=== PATIENT | female | born 1935 | race Caucasian/White ===

== ENCOUNTER 2019-02-25 09:30 | Day surgery (SDC) | payer MEDICARE, OTHER ==
--- NOTE | 2019-02-25 07:19 | History and Physical - [place] ---
CHIEF COMPLAINT/HISTORY OF CHIEF COMPLAINT: This patient presents with a history of an intractable post lumbar laminectomy radiculopathy currently with a spinal infusion system in place infusing Hydromorphone. Over the last number of refills and reprogramming's it was noted she had battery depletion. She is here for a pump battery change without parameter changes. The pump sits in the left posterior gluteal margin. Along with this she has a nonfunctional spinal cord stimulator and internal generator with the generator at the left posterior gluteal margin. She is requesting because of lack of use that the generator and leads be removed. This will all be performed on an outpatient basis. PAST MEDICAL HISTORY: Hypertension. PAST SURGICAL HISTORY: Lumbar spinal surgery, hand surgery, hysterectomy, spinal cord stimulator implant, and intraspinal infusion device implant. MEDICATIONS ON ADMISSION: List to be provided. ALLERGIES: SEAFOOD AND PENICILLIN. FAMILY/PSYCHOSOCIAL HISTORY: Social history - Noncontributory. Family history - Cancer. SYSTEMS REVIEW: The patient is appropriate in no acute distress. The remainder of the systems review is positive for glasses, chronic lung disease, blood pressure, irregular heartbeat and degenerative arthritis. PHYSICAL EXAMINATION: Height is 5'4", weight is 130. No vital signs. HEENT: Within normal limits. LUNGS: Clear. HEART: Rapid and regular. ABDOMEN: Nontender MUSCULOSKELETAL: Examination of the musculoskeletal system shows the spinal cord stimulator and generator in the right posterior gluteal margin and the pump in the left posterior luteal margin, both incisions were intact., Midline incision for the leads T12-L1 intact. Underlying pain pattern post lumbar laminectomy back and leg. Motor sensory abnormalities not identified. Pain pattern circumferentially left leg greater than right. Ambulation - No assistive device utilized. NEUROLOGIC: Cranial nerves are intact. IMPRESSION: 1. POST LUMBAR LAMINECTOMY, ICD-10 CODE M96.1 WITH RADICULOPATHY ICD-10 CODE M54.16 AND M54.17. 2. NONFUNCTIONAL SPINAL CORD STIMULATOR INTERNAL GENERATOR. 3. FUNCTIONAL INTRASPINAL INFUSION DEVICE WITH BATTERY DEPLETION. PLAN: The patient is here on an outpatient basis for battery change for her pump and removal of the stimulator and generator. The procedure will be considered outpatient although an overnight stay will be evaluated. JOB NUMBER: [id number] [facility]
[~2019-02-25 09:30] MED LIST: ACETAMINOPHEN 1,000 MG/100 ML BTL IVPB ONE; FAMOTIDINE 20MG TABLET PO ONE; HYDROMORPHONE HCL IV ONE; HYDROMORPHONE PF 2MG/ML AMP 0.008 MG in 0.9 % SODIUM CHLORIDE 10ML VIA 0.996 ML IV ONE; MECLIZINE 25 MG TABLET PO ONE; METOCLOPRAMIDE 10 MG TABLET PO ONE; SODIUM CHLORIDE 0.9% IV ONE; VANCOMYCIN 1GM/200ML PREMIX 1 GM/200 ML PIGGYBACK IVPB ONE
[2019-02-25] MEDS ORDERED: Clindamycin 600mg vial 150 MG/ML VIAL IVPB ONE (09:31)
[2019-02-25] MEDS ORDERED: PROPOFOL 10 MG/ML VIAL IV ONE (09:31)
[2019-02-25] MEDS ORDERED: LIDOCAINE 2% MDV (20MG/ML) 20ML VIAL IV ONE (09:31)
[2019-02-25] MEDS ORDERED: KETAMINE HCL 100MG/1ML VIAL INJ ONE (09:31)
[2019-02-25 09:56] LABS: BLEEDING TIME 4.5 MINUTES (1.5-7.0)
[2019-02-25 10:09] LABS: PARTIAL THROMBOPLASTIN TIME 27.1 SECONDS (24.5-39.1)
[2019-02-25] MEDS ORDERED: 0.9 % SODIUM CHLORIDE 1000ML 1,000 ML IV ONE (10:30)
[2019-02-25] MEDS ORDERED: BUPIVACAINE 0.5% W/EPI MPF 30 ML VIAL SQ ONE (15:07)
[2019-02-25] MEDS ORDERED: LIDOCAINE 1% W/EPI 1:200,000 MPF 30ML SQ ONE (15:07)
[2019-02-25] MEDS ORDERED: HYDROCODONE/APAP 7.5/325MG TABLET PO ONE (16:10)
--- NOTE | 2019-02-27 11:01 | Operative Note ---
DATE OF SURGERY: 02/25/2019 PREOPERATIVE DIAGNOSES: 1. Post lumbar laminectomy syndrome ICD 10 code M96.1 with radiculopathy ICD 10 code M54.16 and M54.17. 2. Spinal cord stimulator with 2 leads implanted and internal generator implanted. 3. Intraspinal infusion pump, infusing hydromorphone, battery depletion. OPERATION: 1. Fluoroscopic-guided incision subcutaneous dissection and removal of 2 implanted spinal cord stimulators and an internal generator at the right posterior gluteal margin. 2. Incision subcutaneous dissection and removal and replacement of programmable pump left posterior gluteal margin. 3. Closure of all incisions using Stratafix suture 2-0 fascia and 3-0 skin, Dermabond closure. 4. Complex programming of pump to deliver by continuous infusion hydromorphone at 0.96 mg a day. SURGEON: Bobo Byrnes D.O. ANESTHESIA: Local with sedation. ANESTHESIA PROVIDER: Hal Fisher CRNA INDICATIONS: This patient presents with a history of an intractable post lumbar laminectomy radiculopathy. Due to failure of therapy, a spinal cord stimulator trial conducted with implant 2 leads and generator. Generator right posterior gluteal margin. Due to the less than complete pain control through the stimulators, a pump implanted. Pump left posterior gluteal margin. Over the last number of months, the patient has stopped using the stimulator and requested its removal. Simultaneously the pump battery showed depletion and required a battery change. She is here for a pump battery change, as well as removal of 2 stimulators and internal generator. PROCEDURE: Intravenous line, vital sign monitoring, IV sedation by anesthesia. The patient positioned prone. Sterile prep, sterile technique. The midline incision for the 2 spinal cord stimulators approximating 12-1 infiltrating incision made and subcutaneous dissection was conducted to the leads and the anchor. The suture removed and the 2 16 electrode leads were removed intact. At the right posterior gluteal margin generator pouch the skin infiltrated and an incision made and subcutaneous dissection was conducted to the generator pouch, which was opened. The generator removed along with its connection to the leads. At the left posterior gluteal margin the pump pouch infiltrated, incision made and subcutaneous dissection was conducted to the pump. Dacron sleeve opened, the pump exteriorized and from the indwelling catheter. A new pump prefilled hydromorphone at 6 mg/mL placed on to the field. The pump was interfaced to the existing catheter and placed into the pouch, secured to the posterior fascia with nonabsorbable suture. Antibiotic irrigation and Bovie for hemostasis at all 3 sites. A curved Pastrana needle was inserted into the access port and 1 mL of catheter contents was aspirated, clearing the catheter of opioid and a CSF mixture. Preservative-free saline was injected to confirm functionality and patency of the catheter and system. No contrast used because of allergies. With the confirmation, all 3 incisions were closed using Stratafix suture, 2-0 fascia, 3- 0 skin, Dermabond closure. The pump was programmed back to its original parameters infusing 0.96 mg a day hydromorphone. She was transported to the recovery room stable, no side effects from the procedure or sedation. By her request and fully awake and alert she is prepared for discharge. DISCHARGE INSTRUCTIONS: 1. The sites will remain clean and dry. No showering or bathing in any way that would disrupt dressings. If it happens, contact clinic. 2. Standard medications resumed, including the antibiotic Levaquin, 500 mg once a day for 14 days. 3. The office to contact the patient in the next 12 to 24 hours to set up a time in the next 7 to 10 days to evaluate the sites. Throughout this period of time she is to keep her activities controlled. BULMARO
== END 2019-02-25 16:40 | disposition home or self-care (01) ==
LOC: SUR 09:30
PROVIDERS: ATTEND Pain Medicine Interventional Pain Medicine
DX: M96.1 Postlaminectomy syndrome, not elsewhere classified (principal); M54.16 Radiculopathy, lumbar region; M54.17 Radiculopathy, lumbosacral region; I10 Essential (primary) hypertension; J44.9 Chronic obstructive pulmonary disease, unspecified; I50.9 Heart failure, unspecified; K21.9 Gastro-esophageal reflux disease without esophagitis; K75.9 Inflammatory liver disease, unspecified
CPT/HCPCS: 62368; 85002; 85610; 85730; C1776; J3370; J3490; J7030